=== PATIENT | female | born 1965 | race Caucasian/White ===

== ENCOUNTER → 2024-08-22 | Outpatient (CLI) | payer MEDICAID, SELFPAY ==
--- NOTE | 2024-08-22 08:45 | XR_ITS ---
Examination: Screening digital mammography, bilateral Computer aided detection 3-D breast Tomosynthesis, bilateral Date and time of exam: August 22, 2024 0816 hours Compared to mammograms dating to April 07, 2016 Indication: Screening Technique: Nonmagnified MLO, CC views of the breasts to been obtained, reconstructed from 3-D Tomosynthesis images. R2 computer aided detection program utilized for evaluation of suspicious masses and/or abnormal calcifications. 3-D Tomosynthesis images obtained. Findings: The breasts are heterogeneously dense, which may obscure small masses Stable retroareolar nodule right breast No suspicious masses Right breast sonogram today demonstrates 6:00 nodule 4 mm and benign retroareolar cyst Impression: BI-RADS category II: Benign Findings. Recommend 1 year follow-up mammogram.
== END | disposition home or self-care (01) ==
LOC: CDIM 08:04
PROVIDERS: PCP Nurse Practitioner Family; Referring Provider Obstetrics & Gynecology; Visit Provider Obstetrics & Gynecology
DX: Z12.31 Encounter for screening mammogram for malignant neoplasm of breast (principal); R92.323 Mammographic fibroglandular density, bilateral breasts
CPT/HCPCS: 77063; 77067

== ENCOUNTER → 2024-11-15 | Outpatient (CLI) | payer MEDICAID, SELFPAY ==
--- NOTE | 2024-11-15 10:00 | XR_ITS ---
Examination: Ultrasound abdominal aorta TECHNIQUE: Grayscale sonographic images abdominal aorta Date and time: November 16, 2019 5:10 AM INDICATIONS: Smoking history 47 years. FINDINGS: Transverse dimension proximal aorta 2.1 cm mid aorta 1.8 cm distal aorta 1.4 cm right iliac 0.9 cm left iliac 1.0 cm IMPRESSION: Negative for abdominal aortic aneurysm
--- NOTE | 2024-11-15 10:30 | XR_ITS ---
Examination: CT chest, without intravenous contrast. Sagittal and coronal 2-D reconstructions. Exam date and time: November 15, 2024 1013 hours Low dose lung screening examination for cancer, smoking history 30 years CTDI:vol (mGy) 5.91 DLP: (mGycm) 217 Technique: Multiple 3.0 mm axial sections of the chest to been obtained. Bone and lung density settings are obtained. Sagittal and coronal 2-D reconstructions have been obtained. Low dose protocols were performed. One or more of the following dose reduction techniques were used; automated exposure control, adjustment of the mA and/or KV according to patient size, use of iterative reconstruction technique. Findings: No thoracic aortic aneurysm dilatation Pulmonary artery segments are not enlarged. 4 mm pulmonary nodule 12 mm pulmonary nodule right upper lobe axial image 121 2 mm pulmonary nodule right midlung image 182 6 mm pulmonary nodule left lower lobe image 261 No pneumonia or pulmonary edema No visualized liver or splenic lesion Gastric sutures Fat-containing 37 mm left adrenal mass Kidneys partially visualized no hydronephrosis Mild osteopenia IMPRESSION: Noncalcified pulmonary nodules as above, with this study as baseline recommend 6 month follow-up CT chest without contrast
== END | disposition home or self-care (01) ==
PROVIDERS: PCP Nurse Practitioner Family; Referring Provider Nurse Practitioner Family; Visit Provider Nurse Practitioner Family
DX: Z12.2 Encounter for screening for malignant neoplasm of respiratory organs (principal); R91.8 Other nonspecific abnormal finding of lung field; F17.210 Nicotine dependence, cigarettes, uncomplicated
CPT/HCPCS: 71271; 76706